=== PATIENT | female | born 1965 | race American Indian/Alaskan Native ===

== ENCOUNTER 2017-07-10 15:58 | Inpatient (IN) | payer OTHER ==
--- NOTE | 2017-07-10 16:37 | Emergency Department Report ---
Stated Complaint: STAPH INFECTION RIGHT BREAST Time Seen by Provider: 07/10/17 16:33 - HPI History of Present Illness: PT states she had itching to her R breast for "a while" PT states she was told it was cancer and then told it was staph PT States she was given medication and it is not working PT was seen at [place] and [place] PT has a bottle of a 10 day course of Bactrim that was prescribed 06-09-17. pt did not finish her course of antibiotics. pt thought the RX Naprosyn was her antibiotic - ROS Review of Systems: + bleeding from R breast - Exam Physical Exam: pt looks well, non toxic R breast with bloody bandage. PT refused to remove dressing triage. MSE screening note: Focused history and physical exam performed. Due to findings the following was ordered: labs ED Disposition for MSE Condition: Stable
[2017-07-10 17:17] LABS: Basophils % (Auto) 0.5 % (0.0-1.8); Eosinophils % (Auto) 5.4 % (0.0-4.3); Mean Corpuscular HGB Conc 31 % (30-34); Mean Corpuscular Volume 84 fl (79-97); Platelet Count 620 K/mm3 (140-440); Red Blood Count 2.15 M/mm3 (3.65-5.03); Red Cell Distribution Width 15.6 % (13.2-15.2); White Blood Count 9.2 K/mm3 (4.5-11.0)
[2017-07-10 17:22] LABS: Hemoglobin 5.5 gm/dl (10.1-14.3)
[2017-07-10 17:23] LABS: Hematocrit 18.1 % (30.3-42.9); Mean Corpuscular Hemoglobin 26 pg (28-32)
[2017-07-10 17:37] LABS: Albumin 3.7 g/dL (3.9-5); Alkaline Phosphatase 50 units/L (35-129); Anion Gap 19 mmol/L; Blood Urea Nitrogen 8 mg/dL (7-17); Calcium 9.7 mg/dL (8.4-10.2); Carbon Dioxide 23 mmol/L (22-30); Chloride 101.5 mmol/L (98-107); Glucose 113 mg/dL (65-100); Potassium 4.1 mmol/L (3.6-5.0); Sodium 139 mmol/L (137-145); Total Protein 7.5 g/dL (6.3-8.2)
[2017-07-10 17:38] LABS: Alanine Aminotransferase < 5 units/L (7-56)
[2017-07-10] MEDS ORDERED: VANCOMYCIN/NS 1 GM/250 ML 1 GM/250 ML BAG IV ONE (20:17)
--- NOTE | 2017-07-10 20:23 | Emergency Department Report ---
- General Chief complaint: Urogenital-Female Stated complaint: STAPH INFECTION RIGHT BREAST Time Seen by Provider: 07/10/17 16:33 Source: patient Mode of arrival: Ambulatory Limitations: No Limitations - History of Present Illness Initial comments: 51 years old female coming today with a right breast wound has been going on for several months. 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 Patient went to the hospital she was told that she had a breast cancer and need to follow up with her primary care physician but patient stated that they did not do any blood work or biopsy on the patient went to [facility] she told me she had a biopsy done and they told that she does not have cancer she had previous MRSA infection and she was treated with Bactrim and given Naprosyn for pain and fortunately patient is being taking Naprosyn thinking this is how her antibiotic and she did not actually took Bactrim. Patient stated that her wound is being was in brought a lot and she's been changing dressing almost every 3 hours. MD complaint: abscess/boil - Related Data Allergies Allergy/AdvReac Type Severity Reaction Status Date / Time No Known Allergies Allergy Unverified 07/10/17 16:40 Abscess Boil HPI - HPI Chief Complaint: Urogenital-Female Stated Complaint: STAPH INFECTION RIGHT BREAST Time Seen by Provider: 07/10/17 16:33 Allergies/Adverse Reactions: Allergies Allergy/AdvReac Type Severity Reaction Status Date / Time No Known Allergies Allergy Unverified 07/10/17 16:40 ED Review of Systems ROS: Stated complaint: STAPH INFECTION RIGHT BREAST Other details as noted in HPI Comment: All other systems reviewed and negative Constitutional: denies: chills, fever ENT: denies: throat pain Respiratory: denies: cough, orthopnea, shortness of breath Cardiovascular: denies: chest pain, palpitations Gastrointestinal: denies: nausea, vomiting Musculoskeletal: denies: back pain Neurological: denies: headache, weakness, numbness ED Past Medical Hx - Past Medical History Previous Medical History?: Yes Additional medical history: Breast staph infection and breast pain - Surgical History Past Surgical History?: Yes Additional Surgical History: Tubaligation - Social History Smoking Status: Never Smoker Substance Use Type: Alcohol ED Physical Exam - General Limitations: No Limitations General appearance: alert, in no apparent distress - Head Head exam: Present: atraumatic, normocephalic - Eye Eye exam: Present: normal appearance, other (pale Conjunctiva) - ENT ENT exam: Present: normal exam - Neck Neck exam: Present: normal inspection. Absent: meningismus, full ROM - Respiratory Respiratory exam: Present: normal lung sounds bilaterally, other (right breast with two wounds with sangious discharge and granulation tissue.). Absent: wheezes, rales, rhonchi, accessory muscle use, decreased breath sounds, prolonged expiratory - Cardiovascular Cardiovascular Exam: Present: regular rate, normal rhythm, tachycardia - GI/Abdominal GI/Abdominal exam: Present: soft. Absent: tenderness, guarding, rebound - Back Exam Back exam: Present: normal inspection. Absent: CVA tenderness (R), CVA tenderness (L) - Neurological Exam Neurological exam: Present: alert, oriented X3, CN II-XII intact - Skin Skin exam: Present: warm ED Course Vital Signs 07/10/17 07/10/17 07/10/17 16:33 17:56 18:41 Temperature 98.4 F 98.7 F Pulse Rate 109 H 87 Respiratory 20 18 16 Rate Blood Pressure 142/91 Blood Pressure 116/77 [Right] O2 Sat by Pulse 99 100 Oximetry - Reevaluation(s) Reevaluation #1: 07/10/17 21:42 Records from [facility] reviewed, patient presented on 06/08/2017 as documented by the ER physician patient presented with gradual onset of irritation and associated areas of swelling to her right breast 1 year, was also associated moderate gradually worsening pain for a few weeks patient did have chest x-ray done and was negative several blood work done which show a hemoglobin 11.1 patient was told that she has advanced breast cancer and they consulted the hospice social worker to arrange for follow-up. ED Medical Decision Making - Lab Data Result diagrams: 07/10/17 16:57 07/10/17 16:57 - Medical Decision Making Discussed with Dr. Maricarmen Rivera presented the patient to she agreed to admit the patient to our service. Critical care attestation.: If time is entered above; I have spent that time in minutes in the direct care of this critically ill patient, excluding procedure time. ED Disposition Clinical Impression: Breast abscess of female, Acute blood loss anemia Disposition: OP ADMIT IP TO THIS HOSP Is pt being admited?: Yes Does the pt Need Aspirin: No Condition: Stable Referrals: PRIMARY CARE, [Primary Care Provider] - 3-5 Days
[2017-07-10] MEDS: NACL 0.9% 500 ML 500 ML IV ONE ×2 (20:50→23:21)
[2017-07-10] MEDS ORDERED: NACL 0.9% 500 ML 500 ML ONE (23:18)
--- NOTE | 2017-07-10 23:38 | History and Physical Report ---
History of Present Illness Date of examination: 07/10/17 History of present illness: 51-year-old woman with no medical problems comes emergency room for evaluation of her breast. Over the last 1 year she's had swelling of the right breast. She developed bumps on the right breast which poppedand started draining. She was seen at [facility] a month ago and was told by the physician that she possible had cancer, she was discharged from the emergency room. She went to [facility] the same night, she had a workup, she stated her biopsy was negative, mammogram and order tests were negative. She states she had a staph infection of the breast and was given naproxen and Bactrim but has been taking naproxen for the last month and a half thinking that it was her antibiotic. She developed bleeding from the breast Review Of Systems: Constitutional: no weight loss Ears, eyes, nose, mouth and throat: no nasal congestion, no nasal discharge, no sinus pressure, blurry vision, diplopia Neck: No neck pain or rigidity. Cardiovascular: chest pain, orthopnea, palpitations Respiratory: No shortness of breath, cough Gastrointestinal: abdominal pain, hematochezia, melena Genitourinary : no dysuria, frequency , hematuria Musculoskeletal: no muscle ache Integumentary: no rash, no pruritis Neurological: no parathesias, focal weakness Endocrine: no cold or heat intolerance, no polyuria or polydipsia Hematologic/Lymphatic: no easy bruising, no easy bleeding, no gland swelling Allergic/Immunologic: no urticaria, no angioedema. PAST MEDICAL HISTORY:none PAST SURGICAL HISTORY: , tubal ligation FAMILY HISTORY: Hypertension SOCIAL HISTORY: Denies alcohol, tobacco, drugs Medications and Allergies Allergies Allergy/AdvReac Type Severity Reaction Status Date / Time No Known Allergies Allergy Verified 07/10/17 23:18 Home Medications Medication Instructions Recorded Confirmed Last Taken Type Naproxen [Naprosyn] 500 mg PO BID 07/11/17 07/11/17 Unknown History traMADol [Ultram] 50 mg PO Q8HR PRN 07/11/17 07/11/17 Unknown History Exam - Physical Exam Narrative exam: Gen. appearance: Patient lying in bed in no acute distress HEENT: Normocephalic/atraumatic, pupils equal round reactive to light, extra alkaline movement intact, no scleral icterus, no JVD or thyromegaly or nodule, neck is supple, mucous membrane moist, no erythema or exudate Heart: S1-S2, regular rate and rhythm Lungs: Clear to auscultation bilateral breathing comfortable Abdomen: Positive bowel sounds, nontender, nondistended, no organomegaly Extremities: No edema, cyanosis, clubbing Neuro:: Oriented 3 , cranial nerves II-12 intact, speech, motor intact Skin: No rash, nodules, warm dry Breast: Right breast is indurated, 3 large ulcers with blood oozing, yellow fibrinous material - Constitutional Vitals: Temp Pulse Resp BP Pulse Ox 98.4 F 74 17 125/79 100 07/10/17 23:36 07/10/17 23:36 07/10/17 23:36 07/10/17 23:36 07/10/17 23:36 Results - Labs CBC & Chem 7: 07/10/17 16:57 07/10/17 16:57 Labs: Abnormal lab results 07/10/17 07/10/17 07/10/17 Range/Units 16:57 16:57 16:57 RBC 2.15 L (3.65-5.03) M/mm3 Hgb 5.5 L* (10.1-14.3) gm/dl Hct 18.1 L* (30.3-42.9) % MCH 26 L (28-32) pg RDW 15.6 H (13.2-15.2) % Plt Count 620 H (140-440) K/mm3 Ada % (Auto) 8.2 H (0.0-7.3) % Eos % (Auto) 5.4 H (0.0-4.3) % Eos # 0.5 H (0.0-0.4) K/mm3 Glucose 113 H (65-100) mg/dL ALT < 5 L (7-56) units/L Albumin 3.7 L (3.9-5) g/dL Crossmatch See Detail Assessment and Plan Assessment Induration and ulcers of the right breast, ? Underlying malignancy Blood loss anemia Plan Admit to medicine TRANSFUSE red cells, start IV vancomycin Consult oncology, DVT prophylaxis initiated
[2017-07-11] MEDS ORDERED: MORPHINE IV PRN (00:22)
[2017-07-11] MEDS ORDERED: DULCOLAX PR PRN (00:22)
[2017-07-11] MEDS ORDERED: MILK OF MAGNESIA PO PRN (00:22)
[2017-07-11] MEDS ORDERED: ZOFRAN IV PRN (00:22)
[2017-07-11] MEDS ORDERED: TYLENOL PO PRN (00:22)
--- NOTE | 2017-07-11 07:45 | Admit Criteria Form ---
Admission Criteria Documentation: CELLULITIS Clinical Indications for Admission to Inpatient Care (c[place]/check or initial the applicable condition/criteria) Admission is indicated for ANY ONE of the following(1)(2)(3)(4)(5): [ ]I. Limb-threatening infection [ ]II. High-risk comorbid condition as indicated by ANY ONE of the following: [ ]a) Uncontrolled diabetes (eg, HbA1c greater than 10% (0.1)) [ ]b) Cirrhosis [ ]c) Neutropenia [ ]d) Asplenia(12) [ ]e) Immunosuppression [ ]f) Symptomatic heart failure [ ]III. Failure of outpatient therapy as indicated by ALL of the following(6): [ ]a) Progression or no improvement after adequate trial (minimum of 48 hours, with longer period for stable lower extremity infection) [ ]b) Adequate antibiotic regimen as indicated by use of ANY ONE of the following: [ ]i) First-generation cephalosporin (e.g., cephalexin) [ ]ii) Antistaphylococcal penicillin (e.g., dicloxacillin) [ ]iii) Penicillin-allergic patient regimen (clindamycin, extended-spectrum fluoroquinolone, or doxycycline) [ ]iv) Resistant organism (eg, methicillin-resistant Staphylococcus aureus) regimen (7)(8) [ ]c) Outpatient intravenous therapy regimen is not appropriate due to ANY ONE of the following. (9)(10) [ ]i) It was tried and was not successful (eg, progression of infection). [ ]ii) It is not available or cannot be arranged in a clinically appropriate time frame (e.g., the next day). [ ]iii) Clinical presentation (eg, acuity of infection, rapidity of progression, confirmed or suspected bacteremia) is judged to require ALL of the following: [ ]1) Immediate initiation of intravenous therapy ( eg, cannot wait for next day) [ ]2) Intensity of patient monitoring and observation (eg, vital sign measurement, checks for infection progression) that cannot be provided at other than inpatient level of care [ ]IV. Altered Mental status that is severe or persistent [ ]V. Bacteremia [ ]. Hemodynamic instability [ ]VII. Suspected necrotizing soft tissue infection (e.g., gas in tissue)(13)( 14)(15) [ ]VIII. Orbital infection (16)(17) [X]XI. Associated surgical procedure (e.g., abscess drainage, debridement) not amenable to outpatient, emergency department, or observation care [ ]X. Cutaneous gangrene(19) [ ]XII. High fever (temperature greater than 39.5 degrees C (103.1 degrees F) (oral)) not responsive to outpatient, emergency department, or observation care therapy(20)(21) [X ]XIII. Inpatient admission required [A]rather than observation care (Also use Cellulitis: Observation Care as appropriate) because of ANY ONE of the following(22)(23): [ ]a) Periorbital or perineal infection that is severe or worsening [ ]b) Severe pain requiring acute inpatient management [ ]b) IV fluid to replace significant ongoing (e.g., for over 24 hours) losses (greater than 3 L/m2 per day) [ ]b) Compartment syndrome monitoring (24) [ ]b) Strict or protective (eg, laminar flow) isolation) [ ]b) Urgent debridement or skin grafting [ ]b) Bone or joint debridement [ ]b) Immediate inpatient surgery [X]b) Other condition, treatment, or monitoring requiring inpatient admission Extended stay beyond goal length of stay may be needed for(18)(36)(37)(38)(39)( 40)(41) [ ]a) Necrotizing soft tissue infection or fasciitis(13)(42) [ ]b) Gram-negative infection [ ]c) Methicillin-resistant Staphylococcal aureus (MRSA) infection(7)(43) [ ]d) Peripheral venous insufficiency with cellulitis [ ]e) Extensive edema [ ]f) Sepsis or continued Hemodynamic instability [ ]g) Continued high fever or mental status change [ ]h) Bacteremia(43) [ ]i) Active serious comorbid conditions ( eg, heart failure, renal insufficiency) The original [employer] content created by [employer] has been revised. The portions of the content which have been revised are identified through the use of italic text or in bold, and [facility] has neither reviewed nor approved the modified material. All other unmodified content is copyright [facility] Please see references footnoted in the original [facility] edition 2017 Admission Criteria Met: Yes
[2017-07-11] MEDS ORDERED: VANCOMYCIN/NS 1 GM/250 ML 1 GM/250 ML BAG IV SCH (08:00)
[2017-07-11] MEDS: VANCOMYCIN 1,250 MG in NACL 0.9% 250ML 250 ML IV SCH ×2 (08:47→22:03)
--- NOTE | 2017-07-11 10:37 | Progress Note ---
Assessment and Plan Assessment and plan: Right breast abscess. Patient with induration and also to the right breast. Patient reports evaluation A gradient approximate one month ago and states that it was reported as a staph infection. She states that her mammogram and biopsy were negative. We will attempt to obtain old records from [place]. ? Underlying malignancy. Continue IV antibiotics. Consult Dr. Snyder. Acute blood loss Anemia. Patient reports some bleeding from the breast. However, patient also has been taking naproxen for the last month. ? NSAID -->? PUD but no evidence of active bleeding. Check Hemoccult stool. Check iron studies, B12, folate, LDH and retic count. Hematology consultation. History Interval history: No new issues overnight. Hospitalist Physical - Constitutional Vitals: Temp Pulse Resp BP Pulse Ox 98.2 F 54 L 16 114/78 100 07/11/17 07:43 07/11/17 07:43 07/11/17 07:43 07/11/17 07:43 07/11/17 07:43 General appearance: Present: no acute distress, well-nourished - EENT Eyes: Present: PERRL, EOM intact ENT: hearing intact, clear oral mucosa, dentition normal - Neck Neck: Present: supple, normal ROM - Respiratory Respiratory effort: normal Respiratory: bilateral: CTA - Cardiovascular Rhythm: regular Heart Sounds: Present: S1 & S2. Absent: gallop, rub - Extremities Extremities: no ischemia, No edema, Full ROM - Abdominal General gastrointestinal: soft, non-tender, non-distended, normal bowel sounds - Integumentary Integumentary: Present: clear, warm, dry - Neurologic Neurologic: CNII-XII intact, moves all extremities - Additional findings Additional findings: Breast: Right breast is indurated, 3 large ulcers with blood oozing, yellow fibrinous material Results - Labs CBC & Chem 7: 07/10/17 16:57 07/10/17 16:57 Labs: Laboratory Last Values WBC 9.2 K/mm3 (4.5-11.0) 07/10/17 16:57 RBC 2.15 M/mm3 (3.65-5.03) L 07/10/17 16:57 Hgb 5.5 gm/dl (10.1-14.3) L* 07/10/17 16:57 Hct 18.1 % (30.3-42.9) L* 07/10/17 16:57 MCV 84 fl (79-97) 07/10/17 16:57 MCH 26 pg (28-32) L 07/10/17 16:57 MCHC 31 % (30-34) 07/10/17 16:57 RDW 15.6 % (13.2-15.2) H 07/10/17 16:57 Plt Count 620 K/mm3 (140-440) H 07/10/17 16:57 Lymph % (Auto) 24.6 % (13.4-35.0) 07/10/17 16:57 Reagan % (Auto) 8.2 % (0.0-7.3) H 07/10/17 16:57 Eos % (Auto) 5.4 % (0.0-4.3) H 07/10/17 16:57 Baso % (Auto) 0.5 % (0.0-1.8) 07/10/17 16:57 Lymph # 2.3 K/mm3 (1.2-5.4) 07/10/17 16:57 Reagan # 0.8 K/mm3 (0.0-0.8) 07/10/17 16:57 Eos # 0.5 K/mm3 (0.0-0.4) H 07/10/17 16:57 Baso # 0.0 K/mm3 (0.0-0.1) 07/10/17 16:57 Seg Neutrophils % 61.3 % (40.0-70.0) 07/10/17 16:57 Seg Neutrophils # 5.7 K/mm3 (1.8-7.7) 07/10/17 16:57 Sodium 139 mmol/L (137-145) 07/10/17 16:57 Potassium 4.1 mmol/L (3.6-5.0) 07/10/17 16:57 Chloride 101.5 mmol/L (98-107) 07/10/17 16:57 Carbon Dioxide 23 mmol/L (22-30) 07/10/17 16:57 Anion Gap 19 mmol/L 07/10/17 16:57 BUN 8 mg/dL (7-17) 07/10/17 16:57 Creatinine 0.8 mg/dL (0.7-1.2) 07/10/17 16:57 Estimated GFR > 60 ml/min 07/10/17 16:57 BUN/Creatinine Ratio 10.00 % 07/10/17 16:57 Glucose 113 mg/dL (65-100) H 07/10/17 16:57 Calcium 9.7 mg/dL (8.4-10.2) 07/10/17 16:57 Total Bilirubin 0.20 mg/dL (0.1-1.2) 07/10/17 16:57 AST 12 units/L (5-40) 07/10/17 16:57 ALT < 5 units/L (7-56) L 07/10/17 16:57 Alkaline Phosphatase 50 units/L (35-129) 07/10/17 16:57 Total Protein 7.5 g/dL (6.3-8.2) 07/10/17 16:57 Albumin 3.7 g/dL (3.9-5) L 07/10/17 16:57 Albumin/Globulin Ratio 1.0 % 07/10/17 16:57 HCG, Qual Negative (Negative) 07/10/17 16:57 Blood Type A POSITIVE 07/10/17 16:57 Antibody Screen Negative 07/10/17 16:57 Crossmatch See Detail 07/10/17 16:57
--- NOTE | 2017-07-11 11:51 | Hem/Onc Consultation ---
History of Present Illness - Reason for Consult Consult date: 07/11/17 - History of Present Illness 51 year old lady with breast mass that has been getting larger over several months. Was seen at multiple hospitals and informed she has no cancer. Admitetd with anemia and mass. Medications and Allergies Allergies Allergy/AdvReac Type Severity Reaction Status Date / Time No Known Allergies Allergy Verified 07/10/17 23:18 Home Medications Medication Instructions Recorded Confirmed Last Taken Type Naproxen [Naprosyn] 500 mg PO BID 07/11/17 07/11/17 Unknown History traMADol [Ultram] 50 mg PO Q8HR PRN 07/11/17 07/11/17 Unknown History Active Meds: Active Medications Acetaminophen (Tylenol) 650 mg PO Q4H PRN PRN Reason: Pain MILD(1-3)/Fever >100.5/TADEO Bisacodyl (Dulcolax) 10 mg [place] QDAY PRN PRN Reason: Constipation unrelieved by MOM Vancomycin HCl 1,250 mg/ (Sodium Chloride) 262.5 mls @ 166.667 mls/hr IV Q12H SERGIO Last Admin: 07/11/17 08:47 Dose: 166.667 mls/hr Magnesium Hydroxide (Milk Of Magnesia) 30 ml PO Q4H PRN PRN Reason: Constipation Morphine Sulfate (Morphine) 2 mg IV Q4H PRN PRN Reason: Pain, Moderate (4-6) Ondansetron HCl (Zofran) 4 mg IV Q8H PRN PRN Reason: N/V unrelieved by Reglan Review of Systems All systems: negative (mild weakness) Exam - Constitutional Vitals: Last Vital Signs Temp 98.2 F 07/11/17 07:43 Pulse 54 L 07/11/17 07:43 Resp 16 07/11/17 07:43 BP 114/78 07/11/17 07:43 Pulse Ox 100 07/11/17 07:43 Pain Intensity (0-10): denies any pain - EENT Eyes: PERRL ENT: hearing intact Lymph node exam: negative cervical - Neck Neck: supple - Respiratory Respiratory effort: Positive: normal Respiratory: bilateral: CTA - Breasts Breasts: left: masses - Cardiovascular Rhythm: regular Heart Sounds: Present: S1 & S2 - Gastrointestinal General gastrointestinal: Present: soft Rectal Exam: deferred - Musculoskeletal Musculoskeletal: strength equal bilaterally - Neurologic Neurologic: CNII-XII intact Assessment and Plan - Patient Problems (1) Acute blood loss anemia Current Visit: Yes Status: Acute Plan to address problem: Asymptomatic. She is done with PRBC. (2) Breast abscess of female Current Visit: Yes Status: Acute Plan to address problem: very suspicious for cancer. D/w Dr Snyder. Plan is for biopsy. Depending on markers will need homer adjuvant therapy. She understands.
--- NOTE | 2017-07-11 11:54 | Consultation ---
History of Present Illness Consult date: 07/11/17 Reason for consult: other (Right breast abscess) Requesting physician: SHYANNE MAE Chief complaint: Right breast mass and drainage - History of present illness History of present illness: This is a 51 year old lady admitted for right breast abscess. Patient reports she was seen at [facility] last month with mammogram and right breast biopsy peformed with negative findings. She reports over the past month increase in size of right breast mass with drainage. She denies fevers and chills. She has no family history of breast, prostate, colon or ovarian cancer. Past History Past Medical History: No medical history Past Surgical History: No surgical history Social history: no significant social history Family history: no significant family history Medications and Allergies Allergies Allergy/AdvReac Type Severity Reaction Status Date / Time No Known Allergies Allergy Verified 07/10/17 23:18 Home Medications Medication Instructions Recorded Confirmed Last Taken Type Naproxen [Naprosyn] 500 mg PO BID 07/11/17 07/11/17 Unknown History traMADol [Ultram] 50 mg PO Q8HR PRN 07/11/17 07/11/17 Unknown History Active Meds: Active Medications Acetaminophen (Tylenol) 650 mg PO Q4H PRN PRN Reason: Pain MILD(1-3)/Fever >100.5/TADEO Bisacodyl (Dulcolax) 10 mg [place] QDAY PRN PRN Reason: Constipation unrelieved by MOM Vancomycin HCl 1,250 mg/ (Sodium Chloride) 262.5 mls @ 166.667 mls/hr IV Q12H SERGIO Last Admin: 07/11/17 08:47 Dose: 166.667 mls/hr Magnesium Hydroxide (Milk Of Magnesia) 30 ml PO Q4H PRN PRN Reason: Constipation Morphine Sulfate (Morphine) 2 mg IV Q4H PRN PRN Reason: Pain, Moderate (4-6) Ondansetron HCl (Zofran) 4 mg IV Q8H PRN PRN Reason: N/V unrelieved by Reglan Review of Systems All systems: negative - Breasts right: change in shape, swelling, masses, pain, skin changes - Integumentary sores, wounds, blisters, growths, lesions Exam Vital Signs Temp Pulse Resp BP Pulse Ox 98.4 F 109 H 20 142/91 99 07/10/17 16:33 07/10/17 16:33 07/10/17 16:33 07/10/17 16:33 07/10/17 16:33 - General physical appearance Positive: well developed - Eyes Positive: PERRL, normal occular movement - ENT Positive: normal pinna, normal nares, normal mucosa, no hearing loss, no congestion - Neck Positive: no masses, no bruits, trachea midline - Respiratory Positive: normal expansion, normal respiratory effort, clear to percussion - Cardiovascular Rhythm: regular - Extremities Extremities: no ischemia, pulses intact, pulses symmetrical, No edema, normal temperature, normal color, Full ROM - Breasts Breasts: other (right breast fungating mass with ulceration and minimal bleeding highly suspicious for malignancy from the 7:00 to 11:00 position of 4x9 cm and palpable breast mass from the 6-12:00 positions of at least 8-10cm; mulptile satellite skin nodules present concerning for malignancy; palpable right axillary lymphadenopathy) - Abdomen Abdomen: Present: soft - Genitourinary Female Genitourinary: deferred - Neurologic Neurologic: alert and oriented to time, place and person, motor strength and sensation are grossly intact, CN II-XII intact - Psychiatric Psychiatric: appropriate mood/affect, intact judgment & insight, memory intact, cooperative Results - Labs 07/10/17 16:57 07/10/17 16:57 Assessment and Plan This is a 51-year-old -[place] lady seen today in consultation with physical exam findings highly suspicious and concerning for right breast cancer , right breast fungating ulcerated mass from the 7 to 11 o'clock position of the least 9 cm. My concerns for right breast cancer were discussed with patient and we'll arrange for diagnostic workup. Patient is without insurance and we'll get patient qualified for our [employer] pat that will cover a bilateral diagnostic mammogram, diagnostic right breast ultrasound and breast biopsy. Biopsy to be scheduled on Sunday and I will see patient in follow-up on Sunday in my office for further planning with biopsy results. Patient will need neoadjuvant chemotherapy and will need further workup for evaluation for metastatic disease, she's been seen and evaluated by Dr. Dhaliwal as well. Recommend blood transfusion as well given hemoglobin 5. Discussed the above with primary team.
[2017-07-11 13:28] LABS: Reticulocyte % 3.28 % (0.78-2.58)
--- NOTE | 2017-07-11 21:27 | Consultation ---
History of Present Illness - Reason for Consult Consult date: 07/11/17 anemia. Requesting physician: SHYANNE MAE - History of Present Illness Thank you for this consult, patient seen, record reviewed, reason for consult is anemia. It appears that patient presented with a breast lesion, and already seen by another hem-onc, and plan for bx in the talk. Her anemia was not addressed, and may all be related. will order some labs , and if still needed, will f/up ,other [place], will deffer to the current hem/onc. Past History Past Medical History: No medical history Past Surgical History: No surgical history Social history: no significant social history Family history: no significant family history Medications and Allergies Allergies Allergy/AdvReac Type Severity Reaction Status Date / Time No Known Allergies Allergy Verified 07/10/17 23:18 Home Medications Medication Instructions Recorded Confirmed Last Taken Type Naproxen [Naprosyn] 500 mg PO BID 07/11/17 07/11/17 Unknown History traMADol [Ultram] 50 mg PO Q8HR PRN 07/11/17 07/11/17 Unknown History Active Meds: Active Medications Acetaminophen (Tylenol) 650 mg PO Q4H PRN PRN Reason: Pain MILD(1-3)/Fever >100.5/TADEO Bisacodyl (Dulcolax) 10 mg ME QDAY PRN PRN Reason: Constipation unrelieved by MOM Vancomycin HCl 1,250 mg/ (Sodium Chloride) 262.5 mls @ 166.667 mls/hr IV Q12H SERGIO Last Admin: 07/11/17 08:47 Dose: 166.667 mls/hr Magnesium Hydroxide (Milk Of Magnesia) 30 ml PO Q4H PRN PRN Reason: Constipation Morphine Sulfate (Morphine) 2 mg IV Q4H PRN PRN Reason: Pain, Moderate (4-6) Ondansetron HCl (Zofran) 4 mg IV Q8H PRN PRN Reason: N/V unrelieved by Reglan Review of Systems Constitutional: fatigue Exam - Constitutional Vitals: Temp Pulse Resp BP Pulse Ox 98.3 F 73 18 129/83 99 07/11/17 16:16 07/11/17 16:18 07/11/17 16:16 07/11/17 16:16 07/11/17 16:18 General appearance: Present: mild distress, well-nourished - EENT Eyes: Present: PERRL ENT: hearing intact, clear oral mucosa - Neck Neck: Present: supple, normal ROM - Respiratory Respiratory effort: normal Respiratory: bilateral: CTA - Cardiovascular Heart Sounds: Present: S1 & S2. Absent: rub, click - Extremities Extremities: pulses symmetrical, No edema Peripheral Pulses: within normal limits - Abdominal General gastrointestinal: Present: soft, non-tender, non-distended, normal bowel sounds Female genitourinary: Present: deferred - Rectal Rectal Exam: deferred - Integumentary Integumentary: Present: clear, warm, dry - Musculoskeletal Musculoskeletal: gait normal, strength equal bilaterally - Psychiatric Psychiatric: appropriate mood/affect, intact judgment & insight - Neurologic Neurologic: CNII-XII intact, moves all extremities Results - Labs CBC & Chem 7: 07/10/17 16:57 07/10/17 16:57 Labs: Abnormal lab results 07/11/17 07/11/17 07/11/17 Range/Units 12:33 12:33 12:33 Percent Retic 3.28 H (0.78-2.58) % Iron 22 L (37-170) ug/dL Vitamin B12 1632 H (211-911) pg/mL Assessment and Plan - Patient Problems (1) Acute blood loss anemia Current Visit: Yes Status: Acute Plan to address problem: see notes above. (2) Breast abscess of female Current Visit: Yes Status: Acute Plan to address problem: see notes above.
[2017-07-12 05:14] LABS: Basophils % (Auto) 0.7 % (0.0-1.8); Hematocrit 25.7 % (30.3-42.9); Hemoglobin 8.2 gm/dl (10.1-14.3); Mean Corpuscular HGB Conc 32 % (30-34); Mean Corpuscular Hemoglobin 27 pg (28-32); Mean Corpuscular Volume 85 fl (79-97); Platelet Count 472 K/mm3 (140-440); Red Blood Count 3.02 M/mm3 (3.65-5.03); Red Cell Distribution Width 16.2 % (13.2-15.2); White Blood Count 8.8 K/mm3 (4.5-11.0)
[2017-07-12 05:37] LABS: Anion Gap 17 mmol/L; Blood Urea Nitrogen 9 mg/dL (7-17); Calcium 9.6 mg/dL (8.4-10.2); Carbon Dioxide 19 mmol/L (22-30); Chloride 105.7 mmol/L (98-107); Glucose 93 mg/dL (65-100); Potassium 4.1 mmol/L (3.6-5.0); Sodium 138 mmol/L (137-145)
--- NOTE | 2017-07-12 08:22 | Discharge Summary ---
Providers - Providers Date of Admission: 07/10/17 23:38 Date of discharge: 07/12/17 Attending physician: SHYANNE MAE 07/11/17 00:22 Consult to Physician [CONS] Routine Consulting Provider: SAGE BARRERA Reason For Exam: breast wopund suspicious for cancer Place consult to:: Notified:: [facility] Phone number called:: [phone] Was contact made?: Yes If yes, spoke with:: ZACH Munroe called:: 08:12 Comment:: ARACELI NOTIFLEVI 07/11/17 08:00 Consult to Physician [CONS] Routine Consulting Provider: SHEBA AGARWAL Reason For Exam: breast abscess Place consult to:: DR. TROTTER Notified:: DR. TROTTER Phone number called:: [facility] Was contact made?: Yes If yes, spoke with:: DR. TROTTER Time called:: 10:02 Comment:: ARACELI NOTIFLEVI 07/11/17 09:43 Consult to Physician [CONS] Routine Consulting Provider: FRANCES SNYDER Reason For Exam: breast abscess Place consult to:: DR. SNYDER Notified:: DR. SNYDER Phone number called:: [phone] Was contact made?: Yes If yes, spoke with:: BLADE Munroe called:: 10:07 Comment:: ARACELI NOTIFLEVI 07/11/17 10:37 Consult to Physician [CONS] Routine Consulting Provider: STEVE SANCHEZ Reason For Exam: anemia Place consult to:: DR. SANCHEZ Notified:: DR. SANCHEZ Phone number called:: [phone] Was contact made?: Yes If yes, spoke with:: DR. SANCHEZ Time called:: 11:12 Comment:: ARACELI NOTIFIED Primary care physician: SUPERVISOR [employer]INTING Hospitalization Reason for admission: breast mass Condition: Stable Hospital course: This is a 51 year old lady admitted for right breast abscess. Patient reported she was seen at [facility] last month with mammogram and right breast biopsy performed with negative findings. She reports over the past month increase in size of right breast mass with drainage. She denied fevers and chills. She has no family history of breast, prostate, colon or ovarian cancer. Patient was seen by surgery and noted to have physical exam findings highly suspicious and concerning for right breast cancer, right breast fungating ulcerated mass from the 7 to 11 o'clock position of the least 9 cm. the concerns for right breast cancer were discussed with patient and Dr. Snyder will arrange for diagnostic workup. Patient is without insurance and Dr. Snyder will get patient qualified for [employer] that will cover a bilateral diagnostic mammogram, diagnostic right breast ultrasound and breast biopsy. Biopsy to be scheduled on Sunday and the patient will be seen in follow -up on Sunday in Dr. Snyder's office for further planning with biopsy results. Patient will need neoadjuvant chemotherapy and will need further workup for evaluation for metastatic disease, she's been seen and evaluated by Dr. Barrera as well. Patient received blood transfusion during hospitalization. Hemoglobin agustina to 8.2 in stable. Dedicated discharge time 35 minutes. Disposition: - TO HOME OR SELFCARE Time spent for discharge: 35 - Discharge Diagnoses (1) Anemia in chronic illness Status: Acute (2) Breast CA Status: Acute Qualifiers: Breast location: B Estrogen receptor status: E Patient sex: P Laterality: L Core Measure Documentation - Palliative Care Palliative Care/ Comfort Measures: Not Applicable - Core Measures Any of the following diagnoses?: none Exam - Constitutional Vitals: Temp Pulse Resp BP Pulse Ox 98.3 F 20 L 18 129/83 100 07/11/17 16:16 07/11/17 22:54 07/11/17 16:16 07/11/17 16:16 07/11/17 22:54 General appearance: Present: no acute distress, well-nourished - EENT Eyes: Present: PERRL ENT: hearing intact, clear oral mucosa - Neck Neck: Present: supple, normal ROM - Respiratory Respiratory effort: normal Respiratory: bilateral: CTA - Cardiovascular Heart Sounds: Present: S1 & S2. Absent: rub, click - Extremities Extremities: pulses symmetrical, No edema Peripheral Pulses: within normal limits - Abdominal General gastrointestinal: Present: soft, non-tender, non-distended, normal bowel sounds Female genitourinary: Present: normal - Integumentary Integumentary: Present: clear, warm, dry - Musculoskeletal Musculoskeletal: gait normal, strength equal bilaterally - Psychiatric Psychiatric: appropriate mood/affect, intact judgment & insight - Neurologic Neurologic: CNII-XII intact, moves all extremities Plan Activity: no restrictions Weight Bearing Status: Full Weight Bearing Diet: regular Follow up with: PRIMARY CAREMD [Primary Care Provider] - 3-5 Days FRANCES SNYDER MD [Staff Physician] - 7 Days SAGE BARRERA MD [Staff Physician] - 7 Days Prescriptions: oxyCODONE /ACETAMINOPHEN [Percocet 5/325] 1 tab PO Q4HR #30 tab
[2017-07-12 08:50] VITALS: BP 106/62
[2017-07-12] MEDS: VANCOMYCIN 1,250 MG in NACL 0.9% 250ML 250 ML IV SCH (08:56)
== END 2017-07-12 11:32 | disposition home or self-care (01) | DRG 598 ==
LOC: ED 15:58 → 3A 23:38
PROVIDERS: ADMIT Internal Medicine; ATTEND Hospitalist
PROC: 30233N1 Transfusion of Nonautologous Red Blood Cells into Peripheral Vein, Percutaneous Approach (ICD-10-PCS; principal; 2017-07-10)
DX: C50.912 Malignant neoplasm of unspecified site of left female breast (principal); D62 Acute posthemorrhagic anemia; Z98.51 Tubal ligation status; D63.8 Anemia in other chronic diseases classified elsewhere
CPT/HCPCS: 36415; 80048; 80053; 82607; 82747; 83010; 83550; 83615; 84703; 85025; 85045; 86850; 86900; 86901; 86920; 87040; 87116; J3370; J7040; J7050; P9016

== ENCOUNTER 2017-07-18 07:51 | Outpatient (CLI) | payer OTHER | END 2017-07-18 07:52 | disposition home or self-care (01) | LOC: LABHHL 07:51 | PROVIDERS: ATTEND Surgery | DX: N63 Unspecified lump in breast (principal) | CPT/HCPCS: 88307; 88342 ==

== ENCOUNTER 2017-07-31 14:22 | Outpatient (CLI) | payer OTHER ==
--- NOTE | 2017-08-03 09:48 | Magnetic Resonance Report ---
BILATERAL BREAST MRI WITHOUT AND WITH CONTRAST: 07/31/17 14:22:00 CLINICAL: Known right breast cancer. Status post right ultrasound needle biopsy 07/13/17 with pathologic diagnosis of invasive ductal carcinoma, Nanda grade 3/3. A right axillary lymph node biopsy on the same day revealed metastatic carcinoma. COMPARISON:07/13/17 bilateral mammogram and right breast ultrasound.. TECHNIQUE: Axial 1.0-mm T1 without, axial high resolution 2.0-mm T2 and axial 1.0-mm dynamic Vibrant high-resolution postcontrast T1 fat saturation sequences on a 1.5 Ivon magnet. The examination was performed with an 8 channel dedicated Sentin[employer] breast coil. Post processing with CAD and subtraction was performed on an [employer] workstation. 17.0 cc of Multihance was injected without incident for the contrast portion of the exam. Consent was obtained prior to the administration of the contrast. FINDINGS: Right: Marked background parenchymal enhancement. The known cancer is a lobular shaped heterogeneously enhancing complex retroareolar mass measuring 10.1 x 9.2 x 9.2 cm. It demonstrates heterogeneous enhancement with mixed kinetics, 343% peak enhancement and 22% type III washout. The mass has complex architecture with numerous T2 hyperintense cystic components. The mass extends to thickened skin where there is a large ulceration of the skin. The mass also extends to and invades the right pectoral muscle. No chest wall invasion. Additional medial enhancing skin masses measure 2.0 x 1.5 and 1.0 x 1.0 cm. A cluster of abnormal right level II axillary lymph nodes measures 4.1 x 2.6 cm. No suspicious intramammary lymph nodes. Left: Mild background parenchymal enhancement. No mass or suspicious enhancement of the left breast. No suspicious left axillary or left internal mammary lymph nodes. IMPRESSION: 1. Known biopsy proven 10 cm right breast mass with invasion and ulceration of the skin as well as invasion of the right pectoral muscle. 2. Two separate highly suspicious skin nodules of the upper medial right breast. 3. Right axillary lymphadenopathy with biopsy proven right axillary erick metastasis. 4. Negative left breast. RIGHT BI-RADS 6 -- Known Cancer LEFT BI-RADS 1 -- Negative
== END 2017-07-31 14:23 | disposition home or self-care (01) ==
LOC: SPVIMAG 14:22
PROVIDERS: ATTEND Surgery
DX: C50.411 Malignant neoplasm of upper-outer quadrant of right female breast (principal); C50.511 Malignant neoplasm of lower-outer quadrant of right female breast; C50.011 Malignant neoplasm of nipple and areola, right female breast
CPT/HCPCS: 0159T; A9577; C8908; 77059

== ENCOUNTER 2017-08-01 06:08 | Day surgery (SDC) | payer OTHER ==
[~2017-08-01 06:08] MED LIST: ANCEF/STERILE WATER 2 GM/20 ML IV NR; HEPARIN 10,000 UNITS/10 ML IV ONE; MARCAINE 0.25% INFILTRATI ONE; NACL 0.9% IR ONE; NACL 0.9% IV ONE; XYLOCAINE 1% 20 mL INFILTRATI ONE
[2017-08-01] MEDS ORDERED: NACL BACTERIOSTATIC INFILTRATI ONE (06:38)
[2017-08-01] MEDS ORDERED: PEPCID PO NR (07:00)
[2017-08-01] MEDS ORDERED: NACL 0.9% 1000 ML 1,000 ML IV SCH (07:00)
[2017-08-01] MEDS ORDERED: VERSED IV NR (07:00)
[2017-08-01] MEDS ORDERED: DIPRIVAN 10 MG/ML IV ONE (07:30)
[2017-08-01] MEDS ORDERED: DILAUDID ONE (07:31)
[2017-08-01] MEDS ORDERED: NACL 0.9% 100 ML ONE (07:40)
[2017-08-01] MEDS ORDERED: HEPARIN 10,000 UNITS/10 ML ONE (07:40)
[2017-08-01] MEDS ORDERED: MARCAINE 0.25% INFILTRATI ONE ×2 (07:40→08:37)
[2017-08-01] MEDS ORDERED: XYLOCAINE 1% 20 mL ONE (07:41)
[2017-08-01 07:47] LABS: Hematocrit 29.5 % (30.3-42.9); Hemoglobin 9.5 gm/dl (10.1-14.3)
--- NOTE | 2017-08-01 07:58 | Anesthesia Day of Surgery ---
Anesthesia Day of Surgery - Day of Surgery Patient Examined: Yes Patient H&P Reviewed: Yes Patient is NPO: Yes
--- NOTE | 2017-08-01 07:58 | Anesthesia Consultation ---
Anesthesia Consult and Med Hx Date of service: 08/01/17 - Airway Anesthetic Teeth Evaluation: Good ROM Head & Neck: Adequate Mental/Hyoid Distance: Adequate Mallampati Class: Class II Intubation Access Assessment: Probably Good - Pre-Operative Health Status ASA Pre-Surgery Classification: ASA2 Proposed Anesthetic Plan: General, MAC - Pulmonary Hx Asthma: No COPD: No Hx Pneumonia: No - Endocrine Hx End Stage Renal Disease: No - Hematic Hx Anemia: Yes (today) Hx Sickle Cell Disease: No - Other Systems Hx Cancer: Yes (Right breast cancer)
[2017-08-01] MEDS ORDERED: ZOFRAN ONE (08:34)
[2017-08-01] MEDS ORDERED: DECADRON ONE (08:34)
[2017-08-01] MEDS ORDERED: XYLOCAINE MPF 2% ONE (08:34)
[2017-08-01] MEDS ORDERED: XYLOCAINE 1% 20 mL INFILTRATI ONE (08:37)
[2017-08-01] MEDS ORDERED: NACL 0.9% IV ONE (08:53)
[2017-08-01] MEDS ORDERED: HEPARIN 10,000 UNITS/10 ML IV ONE (08:53)
[2017-08-01] MEDS ORDERED: MORPHINE IV PRN (08:58)
[2017-08-01] MEDS ORDERED: NACL 0.9% IR ONE (09:08)
--- NOTE | 2017-08-01 09:26 | Short Stay Summary ---
Short Stay Documentation Date of service: 08/01/17 Narrative H&P: 51 y/o F with right sided breast cancer. Presents today for placement of port a cath to initiate chemotherapy as recommended by oncology. - History Principal diagnosis: right breast cancer H&P: obtained from office Past Medical History: other (R breast cancer) Past Surgical History: No surgical history Social history: no significant social history - Allergies and Medications Current Medications: Allergies No Known Allergies Allergy (Verified 07/30/17 09:33) Home Medications Medication Instructions Recorded Confirmed Last Taken Type oxyCODONE /ACETAMINOPHEN [Percocet 1 tab PO Q4HR #30 tab 07/12/17 08/01/1707/31 Rx 5/325] Active Medications Cefazolin Sodium (Ancef/Sterile Water 2 Gm/20 Ml) 2 gm IV PREOP NR Stop: 08/01/17 12:00 Famotidine (Pepcid) 20 mg PO PREOP NR Stop: 08/01/17 23:45 Last Admin: 08/01/17 07:27 Dose: 20 mg Sodium Chloride (Nacl 0.9% 1000 Ml) 1,000 mls @ 100 mls/hr IV DIRECT SERGIO Last Admin: 08/01/17 07:15 Dose: 100 mls/hr Midazolam HCl (Versed) 2 mg IV PREOP NR Stop: 08/01/17 23:59 Last Admin: 08/01/17 07:57 Dose: 2 mg Morphine Sulfate (Morphine) 2 mg IV Q10MIN PRN PRN Reason: Pain, Moderate (4-6) Stop: 08/01/17 15:00 Ondansetron HCl (Zofran) 4 mg IV ONCE PRN PRN Reason: Nausea And Vomiting Stop: 08/01/17 09:31 Oxycodone/Acetaminophen (Percocet 5/325) 1 tab PO ONCE PRN PRN Reason: Pain, Moderate (4-6) Stop: 08/01/17 10:01 - Physical exam General appearance: no acute distress HEENT: Atraumatic, EOMI Lungs: Normal air movement Breasts: other (large right sided fungating breast mass) Heart: Regular rate Gastrointestinal: normal Extremities: No edema, Full ROM - Brief post op/procedure progress note Date of procedure: 08/01/17 Pre-op diagnosis: right breast cancer Post-op diagnosis: same Procedure: Placement of left port a cath Anesthesia: GETA local Findings: intraop xray shows port to be in good position Surgeon: FRANCES VALLEJO Bottle Packer: NIC RIGGINS Estimated blood loss: minimal Pathology: none Condition: stable - Hospital course Hospital course: The patient was observed in the PACU and recovered. Postoperative course was uneventful and she was discharged home. - Disposition Condition at discharge: Good Disposition: DC-01 TO HOME OR SELFCARE - Discharge Diagnoses (1) Breast CA Status: Acute Qualifiers: Breast location: B Estrogen receptor status: E Patient sex: P Laterality: L Short Stay Discharge Plan Activity: no restrictions Diet: regular Wound: other (may shower tomorrow, do not scrub incisions, keep incisions clean and dry, do not submerge incisions in baths, hottubs, pools until healed) Special Instructions: other Follow up with: PRIMARY MD LAURA [Primary Care Provider] - 7 Days FRANCES VALLEJO MD [Staff Physician] - 14 Days Prescriptions: Clindamycin [Clindamycin CAP] 300 mg PO Q8H #30 cap oxyCODONE /ACETAMINOPHEN [Percocet 5/325 mg] 1 tab PO Q4HR #30 tab
[2017-08-01] MEDS ORDERED: ZOFRAN IV PRN (09:30)
--- NOTE | 2017-08-01 09:57 | Operative Report ---
Operative Report Operative Report: Date of Surgery: August 01, 2017 Preoperative diagnosis: Advanced stage right breast cancer in need of central venous access Postoperative diagnosis: Same Procedure: Left port placement under fluoroscopy guidance Surgeon: Monica Snyder MD Syrup Maker Cook: Dr. Castro Anesthesia: General Findings: Left port placement with placement confirmed Complications: None EBL: Minimal Disposition: PACU in good condition Indications for operative procedure: This is a 51 year old lady with newly diagnosed right breast cancer of the upper and lower outer quadrants, Stage III in need of central venous access for neoadjuvant chemotherapy. Procedure in detail: Patient was taken to the operating room and was laid supine. Gen. anesthesia was administered. Bilateral chest and neck were prepped and draped in the normal sterile operative fashion. Known right breast fungating breast mass was noted and was covered for concerns for infection. Patient was placed in Trendelenburg position. Sternal notch including the clavicle and sternum were identified. The left subclavian vein was accessed with a needle and syringe attached with appropriate backflow of blood. A wire was threaded through the needle with no resistance. Fluoroscopy was then used to identify the location of proper wire placement. 11 blade knife was then used and was made at the insertion site of the wire. A 15 blade knife was then made through the skin down to the subcutaneous tissues 2 cm distal to wire insertion for creation of pocket for the port. Port pocket was then created using the bovie cautery. Port catheter was then attached to the Tunneler and was inserted from the port pocket to the wire insertion site. Catheter with dilator was then threaded through the wire using a Seldinger like technique. The dilator was removed. The catheter was then threaded through the sheath. The sheath was then peeled away and catheter was in proper placement that was confirmed under fluoroscopy guidance. The catheter was cut to size. Good backflow of blood was noted from the port that was accessed. The port as placed int he pocket and sutured in place. Placement was confirmed again under fluoroscopy guidance. Port was accessed with good backflow of blood and flushed with heparin. Upright chest film was performed in the operating room and no pneumothorax was noted. The port insicion was closed with 3-0 Vicryl followed by 4-0 Monocryl and skin affix. The right breast fungating mass was dressed. The patient was awakened from anesthesia and transported to PACU in good condition.
[2017-08-01] MEDS ORDERED: PERCOCET 5/325 PO PRN (10:00)
--- NOTE | 2017-08-01 10:01 | Post Anesthesia Evaluation ---
- Post Anesthesia Evaluation Patient Participated: Yes Airway Patent: Yes Stable Respiratory Function: Yes Nausea/Vomiting: No Temp > 96.8F: Yes Pain Manageable: Yes Adequeate Hydration: Yes Anesthesia Complications: No Block Receding Appropriately: Not Applicable Patient on Ventilator: No
[2017-08-01 11:12] VITALS: BP 108/70
--- NOTE | 2017-08-01 11:13 | Fluoroscopy Report ---
Single view chest: Next History: Breast cancer/insertion of Saadai-e-Ntst. Findings: Cardiomegaly. Trachea is midline. No consolidation, pneumothorax or pleural effusion. Tip of left [id number] is in the right atrium. Impression: Stable left Kgezwy-u-Meac.
== END 2017-08-01 11:10 | disposition home or self-care (01) ==
LOC: OR 06:08
PROVIDERS: ATTEND Surgery
DX: C50.411 Malignant neoplasm of upper-outer quadrant of right female breast (principal); C50.511 Malignant neoplasm of lower-outer quadrant of right female breast; C50.011 Malignant neoplasm of nipple and areola, right female breast; D64.9 Anemia, unspecified; Z98.890 Other specified postprocedural states
CPT/HCPCS: 36415; 36561; 77001; 81025; 85014; 85018; C1788; J0690; J1100; J1170; J1644; J2250; J2405; J2704; J7030

== ENCOUNTER 2017-12-18 10:14 | Outpatient (CLI) | payer MEDICAID ==
--- NOTE | 2017-12-18 12:59 | Mammography Report ---
RIGHT DIGITAL DIAGNOSTIC MAMMOGRAM with CAD and RIGHT BREAST ULTRASOUND: 12/18/17 10:14:00 CLINICAL: Right breast cancer status post chemotherapy. There is no mass measured 10 cm by MRI. COMPARISON:07/13/17 FINDINGS: And upper outer irregular retroareolar mass is significantly decreased in size and measures approximately 3.8 x 3.4 x 4.0 cm. Malignant calcifications are identified within the mass. Moderate skin thickening of the inner breast is significantly reduced compared to the prior exam. Ultrasound of the right breast demonstrated an irregular solid hypoechoic retroareolar mass at 12 o'clock measuring 2.7 x 2.4 x 2.4 cm. It correlates with the mammographic mass. IMPRESSION: Partial response to chemotherapy. BI-RADS CATEGORY: 6--Known Cancer ACR BI-RADS MAMMOGRAPHIC CODES: 0 = Needs additional imaging evaluation; 1 = Negative; 2 = Benign; 3 = Probably benign; 4 = Suspicious; 5 = Malignant; 6 = Known biopsy-proven malignancy COMMENT: 1. Dense breast tissue, i.e., adenosis, fibrocystic changes, etc., may obscure an underlying neoplasm. 2. Approximately 10% of cancers are not detected with mammography. 3. A negative mammography report should not delay biopsy if a clinically suspicious mass is present. COMMENT: Patient follow-up letters are generated by our [employer] application.
== END 2017-12-18 10:15 | disposition home or self-care (01) ==
LOC: SPVWC 10:14
PROVIDERS: ATTEND Surgery
DX: C50.911 Malignant neoplasm of unspecified site of right female breast (principal); R92.8 Other abnormal and inconclusive findings on diagnostic imaging of breast

== ENCOUNTER 2018-02-13 11:05 | Inpatient (IN) | payer MEDICAID ==
--- NOTE | 2018-02-13 13:29 | History and Physical Report ---
History of Present Illness Date of examination: 02/13/18 Date of admission: 02/13/18 11:30 Chief complaint: postop complication History of present illness: 3 weeks s/p right TRAM reconstruction and left tissue paint striping machine operator reconstruction. Now with likely paint striping machine operator infection as well as abdominal wound healing issues. Past History Past Medical History: cancer Past Surgical History: Other (see HPI) Social history: no significant social history Family history: no significant family history Medications and Allergies Allergies Allergy/AdvReac Type Severity Reaction Status Date / Time No Known Allergies Allergy Verified 01/11/18 15:32 Home Medications Medication Instructions Recorded Confirmed Last Taken Type Acetaminophen [Acetaminophen TAB] 650 mg PO Q6H PRN tablet 01/24/18 Unknown Rx Docusate Sodium [Colace CAP] 100 mg PO BID capsule 01/24/18 Unknown Rx Gabapentin [Neurontin] 300 mg PO Q8HR capsule 01/24/18 Unknown Rx oxyCODONE /ACETAMINOPHEN [Percocet 1 tab PO Q6H PRN tablet 01/24/18 Unknown Rx 5/325 mg] Review of Systems All systems: negative (recent fever, left breast pain and drainage, abdominal drainage) Exam Vital Signs Temp Pulse Resp BP Pulse Ox 97.8 F 65 20 107/74 100 02/13/18 12:58 02/13/18 12:58 02/13/18 12:58 02/13/18 12:58 02/13/18 12:58 Narrative exam: GEN: NAD CV: RRR Pulm: unlabored Abdomen: open wound left central lower incision, granulation tissue present. No pus or drainage. Small opening in central incision. Right drain site with open wound. BREAST: Right TRAM well perfused and no issues. Left tissue paint striping machine operator in place, copious semi purulent drainage from the left breast drain site. Assessment and Plan 3 weeks s/p RIGHT TRAM FLAP RECONSTRUCTION and LEFT TISSUE FARM IMPLEMENT MECHANIC RECONSTRUCTION, now with infection and wound healing complications Admit to hospital for IV antibiotics Need to take to OR urgently for removal of paint striping machine operator, washout, debridement of abdominal incision and placement of wound vac.
[2018-02-13] MEDS ORDERED: SODIUM CHLORIDE FLUSH SYRINGE 10 ML IV PRN (13:30)
[2018-02-13] MEDS ORDERED: ZOFRAN IV PRN (13:30)
[2018-02-13] MEDS ORDERED: DILAUDID IV PRN (13:36)
[2018-02-13] MEDS ORDERED: VANCOMYCIN 1,500 MG in NACL 0.9% 500 ML 500 ML IV ONE (14:00)
[2018-02-13] MEDS ORDERED: ZOSYN/NS 4.5GM/100ML 4.5 GM/100 ML VIAL IV SCH (14:00)
[2018-02-13] MEDS ORDERED: VANCOMYCIN PHARMACY TO DOSE IV SCH (14:00)
[2018-02-13] MEDS ORDERED: VANCOMYCIN/NS 1 GM/250 ML 1 GM/250 ML BAG IV SCH (14:00)
[2018-02-13 15:12] LABS: Hematocrit 28.4 % (30.3-42.9); Hemoglobin 9.2 gm/dl (10.1-14.3); Mean Corpuscular HGB Conc 32 % (30-34); Mean Corpuscular Hemoglobin 29 pg (28-32); Mean Corpuscular Volume 91 fl (79-97); Platelet Count 363 K/mm3 (140-440); Red Blood Count 3.13 M/mm3 (3.65-5.03); Red Cell Distribution Width 15.4 % (13.2-15.2)
[2018-02-13 15:24] LABS: BUN/Creatinine Ratio 11; Blood Urea Nitrogen 8 mg/dL (7-17); Calcium 10.2 mg/dL (8.4-10.2); Hemolysis Index 1
[2018-02-13] MEDS ORDERED: ZOSYN/NS 4.5GM/100ML 4.5 GM/100 ML VIAL IV ONE (16:00)
[2018-02-13 16:11] LABS: Basophils % (Manual) 0 % (0.0-1.8); Total Cells Counted 100
[2018-02-13 16:12] LABS: Anisocytosis 1+; Poikilocytosis Few
--- NOTE | 2018-02-13 17:29 | Anesthesia Consultation ---
Anesthesia Consult and Med Hx Date of service: 02/13/18 - Airway Anesthetic Teeth Evaluation: Good ROM Head & Neck: Adequate Mental/Hyoid Distance: Adequate Mallampati Class: Class II Intubation Access Assessment: Probably Good - Pre-Operative Health Status ASA Pre-Surgery Classification: ASA2 Proposed Anesthetic Plan: General - Pulmonary Hx Asthma: No COPD: No Hx Pneumonia: No - Central Nervous System Hx Psychiatric Problems: No - Endocrine Hx End Stage Renal Disease: No - Hematic Hx Anemia: Yes Hx Sickle Cell Disease: No - Other Systems Hx Alcohol Use: No Hx Substance Use: No Hx Cancer: Yes (breast CA) - Additional Comments Anesthesia Medical History Comments: s/p TRAM 01/20, infected breast nonprofit director
--- NOTE | 2018-02-13 17:33 | Anesthesia Day of Surgery ---
Anesthesia Day of Surgery - Day of Surgery Patient Examined: Yes Patient H&P Reviewed: Yes Patient is NPO: Yes
[2018-02-13] MEDS ORDERED: DIPRIVAN 10 MG/ML IV ONE (17:39)
[2018-02-13] MEDS ORDERED: ZOFRAN ONE (17:39)
[2018-02-13] MEDS ORDERED: XYLOCAINE MPF 2% ONE (17:39)
[2018-02-13] MEDS ORDERED: DECADRON ONE (17:39)
[2018-02-13] MEDS ORDERED: SUBLIMAZE ONE (17:41)
[2018-02-13] MEDS ORDERED: NACL 0.9% IR ONE (18:09)
[2018-02-13] MEDS ORDERED: BACITRACIN IR ONE (18:09)
[2018-02-13] MEDS ORDERED: GARAMYCIN IV ONE (18:09)
[2018-02-13] MEDS ORDERED: ANCEF IR ONE (18:09)
[2018-02-13] MEDS ORDERED: NACL 0.9% 1000 ML 1,000 ML ONE (18:12)
[2018-02-13] MEDS ORDERED: BACITRACIN ONE (18:26)
[2018-02-13] MEDS ORDERED: ANCEF/STERILE WATER 2 GM/20 ML 2 GM/20 ML SYRINGE IV ONE (18:26)
[2018-02-13] MEDS ORDERED: GARAMYCIN ONE (18:26)
--- NOTE | 2018-02-13 19:32 | Post Operative Note ---
Pre-op diagnosis: infection left tissue head of maintenance, abdominal wound dehiscence Post-op diagnosis: same Findings: infected left breast tissue head of maintenance, dehiscence of abdominal wound Procedure: removal left breast tissue head of maintenance, washout, debridement abdominal wound, wound vac placement Anesthesia: GETA Surgeon: LASHELL BREWER Estimated blood loss: minimal Pathology: list (tissue head of maintenance and cultures) Specimen disposition: to lab Condition: stable Disposition: PACU
[2018-02-13] MEDS ORDERED: PERCOCET 5/325 PO PRN (20:53)
[2018-02-13] MEDS: NEURONTIN PO SCH (22:40)
[2018-02-13] MEDS: COLACE PO SCH (22:40)
[2018-02-13] MEDS: ZOSYN/NS 4.5GM/100ML 4.5 GM/100 ML VIAL IV SCH (22:41)
[2018-02-13] MEDS: SODIUM CHLORIDE FLUSH SYRINGE 10 ML IV SCH (22:42)
--- NOTE | 2018-02-14 | Operative Report ---
PREOPERATIVE DIAGNOSES: Left-sided breast tissue house parent infection and abdominal wound dehiscence. POSTOPERATIVE DIAGNOSES: Left-sided breast tissue house parent infection and abdominal wound dehiscence. PROCEDURES: 1. Incision and drainage complex postoperative wound infection, left breast, CPT CODE 90132. 2. Debridement down to and including subcutaneous tissue of less than 20 square cm of tissue of the abdominal wound, CPT CODE 07315. 3. Application of negative pressure wound VAC device to abdominal wound for postoperative healing less than 50 square cm, CPT CODE 06749. SURGEON: Viktor Mendoza M.D. SANITATION SUPERINTENDENT: None. ANESTHESIA: General. OPERATIVE INDICATIONS: This is a 52-year-old female with an aggressive cancer, who had undergone neoadjuvant chemotherapy, who 3 weeks ago underwent bilateral mastectomies with reconstruction. She had a right-sided TRAM reconstruction that was pedicled and left-sided tissue house parent reconstruction. She has been doing well postop week 1 and then in postop week 2, she had a fever, which she did not notify any of her physicians about, which then kind of resolved. Her abdominal wound started to open up slightly. When I saw her in the office this morning, her abdominal wound had partially dehisced. She had fluid draining out of that and she had copious amounts of fluid draining out of her previous drain site in her left breast. I was concerned about infection of the house parent and also possible infection of the abdominal wall and mesh and decided to urgently take her to the hospital and started on IV antibiotics, take her to the operating room to address the issue. Risks and benefits of surgery were discussed with the patient and she agreed. OPERATIVE DETAILS: After informed consent was obtained, the patient was brought to the operating room and placed supine on the operating table. Preoperative antibiotics and general anesthesia were administered. The patient was prepped and draped in usual sterile fashion. A timeout was called verifying the inpatient operation being performed. We began with the abdominal incision. There was a dehisced area roughly 5 or 6 cm in length just lateral to the midline. There was another small area directly in the midline that was open. I decided to connect those 2 as there was a small 1 cm skin bridge connecting them. I opened that fully and allowed any fluid to drain out. Using finger dissection we then debrided all necrotic tissue of the wound of skin and subcutaneous tissue using a scalpel and scissors. All devitalized tissue was removed. The wound was then copiously irrigated with a liter of triple antibiotic irrigation. The wound was looking much more healthy and hemostasis was achieved. There was no tunneling or tracking. The mesh that was used for the abdominal closure was not visible. All appeared to be localized right to the incision. We then placed a black sponge into the wound and applied a wound VAC with adequate suction. Of note, we had also taken wound cultures of the abdominal wound and send that off. I then turned my attention to the breast. The previous incision was opened and a copious amount of semi-purulent fluid came rushing out. This was suctioned. We took cultures of that as well. There was an obvious infection going on, so the tissue house parent was completely removed and sent to pathology. The acellular dermal matrix that had been placed was partially incorporating but the majority of it was nonviable, so about 95% of the mesh was debrided and removed. We then cleaned up the rest of the pocket, irrigated with another 2 liters of triple antibiotic irrigation and achieved hemostasis. I placed a 15-Bahamian round Nasir drain into the pocket and then closed with 2-0 Vicryl interrupted deep dermals and a running 3-0 Monocryl subcuticular. We then placed Xeroform and sterile dressing. Sponge and instrument counts were correct and the patient tolerated the procedure well and was transferred to PACU in stable condition. ESTIMATED BLOOD LOSS: Less than 50 mL. COMPLICATIONS: None. FINDINGS: Infected left breast tissue house parent and dehiscence of abdominal wound. JOB# [id number] Love/SHIV
[2018-02-14] MEDS: VANCOMYCIN 1,250 MG in NACL 0.9% 250ML 250 ML IV SCH ×2 (01:57→17:44)
[2018-02-14] MEDS: ZOSYN/NS 4.5GM/100ML 4.5 GM/100 ML VIAL IV SCH (06:00)
[2018-02-14] MEDS: NEURONTIN PO SCH ×3 (06:01→23:19)
[2018-02-14] MEDS: NACL 0.9% 1000 ML 1,000 ML IV SCH (06:02)
--- NOTE | 2018-02-14 07:29 | Consultation ---
History of Present Illness - Reason for Consult Consult date: 02/14/18 Breast infection Requesting physician: LASHELL BREWER - History of Present Illness HPI: 52 yo F PMH Left breast cancer, s/p chemotherapy and s/p bilateral mastectomies, Right TRAM reconstruction and Left tissue renal case manager reconstruction on 01/21/18 who was admitted to [facility] 02/13/18 due to infected left breast tissue renal case manager and dehiscence of abdominal wound. Pt had been having Left breast pain and drainage from prior drain site, abdominal wound drainage and episode of fever of 103. She denies N/V/D, cough, SOB, CP, TADEO, dizziness, dysuria, abdominal pain. She was seen by the surgeon on 02/13 and due to concern about infection she was urgently admitted to the hospital on 02/13/18. On admission her temperature was 97.8, pulse 66, respiratory rate 20, saturation is 100%, blood pressure 107/74. WBC was 5.7, H&H 9.20/28.4, platelets 363. BUN and creatinine were 8 and 0.7. She underwent removal left breast tissue renal case manager, washout, debridement abdominal wound, wound vac placement on 02/13/18. Surgical cultures are pending. She is Zosyn and vancomycin. Infectious diseases service is consulted for further antibiotic management. Microbiology: Left breast tissue culture 02/13/18 pending Current Antimicrobials: Zosyn 02/13- Vancomycin 02/13- Past History Past Medical History: cancer Past Surgical History: Other (see HPI) Social history: no significant social history Family history: no significant family history Medications and Allergies Allergies Allergy/AdvReac Type Severity Reaction Status Date / Time No Known Allergies Allergy Verified 01/11/18 15:32 Home Medications Medication Instructions Recorded Confirmed Last Taken Type Acetaminophen [Acetaminophen TAB] 650 mg PO Q6H PRN tablet 01/24/18 Unknown Rx Docusate Sodium [Colace CAP] 100 mg PO BID capsule 01/24/18 Unknown Rx Gabapentin [Neurontin] 300 mg PO Q8HR capsule 01/24/18 Unknown Rx oxyCODONE /ACETAMINOPHEN [Percocet 1 tab PO Q6H PRN tablet 01/24/18 Unknown Rx 5/325 mg] Active Meds: Active Medications Docusate Sodium (Colace) 100 mg PO BID SERGIO Last Admin: 02/13/18 22:40 Dose: 100 mg Enoxaparin Sodium (Lovenox) 40 mg SUB-Q QDAY [facility] Gabapentin (Neurontin) 300 mg PO Q8HR [facility] Last Admin: 02/14/18 06:01 Dose: 300 mg Hydromorphone HCl (Dilaudid) 0.5 mg IV Q3H PRN PRN Reason: Pain , Severe (7-10) Sodium Chloride (Nacl 0.9% 1000 Ml) 1,000 mls @ 100 mls/hr IV DIRECT [facility] Last Admin: 02/14/18 06:02 Dose: 100 mls/hr Piperacillin Sod/Tazobactam Sod (Zosyn/Ns 4.5gm/100ml) 4.5 gm in 100 mls @ 200 mls/hr IV Q8HR [facility] Last Admin: 02/14/18 06:00 Dose: 200 mls/hr Vancomycin HCl 1,250 mg/ (Sodium Chloride) 262.5 mls @ 166.667 mls/hr IV Q12H [facility] Last Admin: 02/14/18 01:57 Dose: 166.667 mls/hr Ondansetron HCl (Zofran) 4 mg IV Q8H PRN PRN Reason: Nausea And Vomiting Oxycodone/Acetaminophen (Percocet 5/325) 1 tab PO Q6H PRN PRN Reason: Pain, Moderate (4-6) Last Admin: 02/13/18 22:40 Dose: 1 tab Sodium Chloride (Sodium Chloride Flush Syringe 10 Ml) 10 ml IV BID [facility] Last Admin: 02/13/18 22:42 Dose: 10 ml Sodium Chloride (Sodium Chloride Flush Syringe 10 Ml) 10 ml IV PRN PRN PRN Reason: LINE FLUSH Review of Systems Constitutional: other (as per HPI) Physical Examination - Physical Exam Narrative exam: General appearance: Alert in NAD, conversant Eyes: anicteric sclerae, moist conjunctivae; PERRLA, EOMI. HENT: Atraumatic; oropharynx clear with moist mucous membranes and no mucosal ulcerations/no oral thrush; normal hard and soft palate. Normal external ears. Neck: Trachea midline; supple, no thyromegaly or lymphadenopathy Lungs: CTA, with normal respiratory effort and no intercostal retractions CV: S1,S2. RRR. Breasts: R breast surgical wound, clean, no erythema or drainage. R breast with dressing and RAI drain in place with serosanguineous drainage. Abdomen: +BS. Soft, non-tender. Lower abdominal wound with wound vac in place. RLQ open wound with some slough, no surrounding erythema. Extremities: No peripheral edema or extremity lymphadenopathy Skin: No rash. Psych: Appropriate affect, alert and oriented to person, place and time. Neuro: alert and oriented x 3. Moving all extremities Lines: No CVL / PICC - Constitutional Vitals: Vital Signs Temp Pulse Resp BP Pulse Ox 97.5 F L 68 18 102/66 97 02/13/18 23:23 02/13/18 23:23 02/13/18 23:23 02/13/18 23:23 02/13/18 23:23 Temperature -Last 24 Hours Temperature 97.5 F Temperature 97.8 F Temperature 98.1 F Temperature 97.8 F Results - Labs CBC & Chem 7: 02/14/18 06:41 02/14/18 06:41 Labs: Abnormal lab results 02/13/18 Range/Units 14:38 RBC 3.13 L (3.65-5.03) M/mm3 Hgb 9.2 L (10.1-14.3) gm/dl Hct 28.4 L (30.3-42.9) % RDW 15.4 H (13.2-15.2) % Lymphocytes % (Manual) 37.0 H (13.4-35.0) % Monocytes % (Manual) 9.0 H (0.0-7.3) % Eosinophils % (Manual) 8.0 H (0.0-4.3) % Eosinophils # (Manual) 0.5 H (0.0-0.4) K/mm3 Assessment and Plan Assessment: 1) Infected left breast tissue renal case manager and dehiscence of abdominal wound. -s/p removal left breast tissue renal case manager, washout, debridement of abdominal wound, wound vac placement on 02/13/18. 2) Breast cancer, s/p Bilateral mastectomies with reconstruction on 01/21/18. Recommendations: -follow-up surgical cultures. -Continue vancomycin -Change to cefepime -Monitor CBC, CMP. -Antibiotic regimen for discharge will depend on culture results. -Further recommendations as case progresses. Thank you for your consultation, will follow up with you. Ashwini Tiwari MD Infectious Diseases Specialist [facility] ([facility]) [phone]
[2018-02-14 07:46] LABS: Basophils % (Auto) 0.2 % (0.0-1.8); Hematocrit 28.2 % (30.3-42.9); Hemoglobin 9.4 gm/dl (10.1-14.3); Lymphocytes # (Auto) 1.4 K/mm3 (1.2-5.4); Lymphocytes % (Auto) 23.8 % (13.4-35.0); Mean Corpuscular HGB Conc 33 % (30-34); Mean Corpuscular Hemoglobin 30 pg (28-32); Mean Corpuscular Volume 90 fl (79-97); Monocytes # (Auto) 0.2 K/mm3 (0.0-0.8); Monocytes % (Auto) 2.9 % (0.0-7.3); Platelet Count 395 K/mm3 (140-440); Red Blood Count 3.15 M/mm3 (3.65-5.03); Red Cell Distribution Width 15.8 % (13.2-15.2)
[2018-02-14 08:00] LABS: BUN/Creatinine Ratio 16; Blood Urea Nitrogen 14 mg/dL (7-17); Calcium 10.6 mg/dL (8.4-10.2); Hemolysis Index 2
[2018-02-14] MEDS: MAXIPIME 2 GM in NACL 0.9% 20 ML IV SCH ×5 (08:30→23:48)
--- NOTE | 2018-02-14 09:45 | Progress Note ---
Assessment and Plan 3 weeks s/p RIGHT TRAM FLAP RECONSTRUCTION and LEFT TISSUE LOAN EXPEDITOR RECONSTRUCTION, now with infection and wound healing complications. POD 1 s/p removal of infected velvet cutter, debridement abdominal wound and placement of wound vac dressing. -Advance diet -Follow up cultures -Appreciate ID input: switching from zosyn to cefepime. -Case management consult: need to try and setup home wound vac therapy, possible DC tomorrow Subjective Date of service: 02/14/18 Principal diagnosis: left breast tissue velvet cutter infection Interval history: Did well overnight, pain is well controlled. No major issues Objective - Exam Narrative Exam: BREAST: Dressing in place, no drainage. Drain is serosang. No hematoma. ABD: wound vac in place, scant drainage, good seal. - Constitutional Vitals: Vital Signs - 12hr 02/13/18 02/13/18 02/13/18 22:00 22:40 23:23 Temperature 97.5 F L Pulse Rate 68 Respiratory 20 20 18 Rate Blood Pressure 102/66 O2 Sat by Pulse 97 Oximetry 02/14/18 07:46 Temperature 98.2 F Pulse Rate 58 L Respiratory 18 Rate Blood Pressure 101/64 O2 Sat by Pulse 95 Oximetry - Labs CBC & Chem 7: 02/14/18 06:41 02/14/18 06:41 Labs: Abnormal lab results 02/13/18 02/14/18 02/14/18 Range/Units 14:38 06:41 06:41 RBC 3.13 L 3.15 L (3.65-5.03) M/mm3 Hgb 9.2 L 9.4 L (10.1-14.3) gm/dl Hct 28.4 L 28.2 L (30.3-42.9) % RDW 15.4 H 15.8 H (13.2-15.2) % Seg Neutrophils % 73.1 H (40.0-70.0) % Lymphocytes % (Manual) 37.0 H (13.4-35.0) % Monocytes % (Manual) 9.0 H (0.0-7.3) % Eosinophils % (Manual) 8.0 H (0.0-4.3) % Eosinophils # (Manual) 0.5 H (0.0-0.4) K/mm3 Glucose 134 H (65-100) mg/dL Calcium 10.6 H (8.4-10.2) mg/dL
[2018-02-14] MEDS: COLACE PO SCH ×2 (10:33→23:19)
[2018-02-14] MEDS: LOVENOX SUB-Q SCH (10:33)
[2018-02-14] MEDS: SODIUM CHLORIDE FLUSH SYRINGE 10 ML IV SCH ×2 (10:37→23:20)
[2018-02-14] MEDS ORDERED: VANCOMYCIN PHARMACY TO DOSE IV SCH (11:00)
[2018-02-14] MEDS: VANCOMYCIN/0.45 NS 1 GM/250 ML 1 GM/250 ML BAG IV SCH (17:45)
[2018-02-15] MEDS: VANCOMYCIN/0.45 NS 1 GM/250 ML 1 GM/250 ML BAG IV SCH ×2 (06:55→17:09)
[2018-02-15] MEDS: MAXIPIME 2 GM in NACL 0.9% 20 ML IV SCH ×2 (06:55→22:03)
[2018-02-15] MEDS: NEURONTIN PO SCH ×3 (07:04→22:03)
--- NOTE | 2018-02-15 07:58 | Progress Note ---
Assessment and Plan 3 weeks s/p RIGHT TRAM FLAP RECONSTRUCTION and LEFT TISSUE AQUATIC BIOLOGIST RECONSTRUCTION, now with infection and wound healing complications. POD 2 s/p removal of infected pulper tender, debridement abdominal wound and placement of wound vac dressing. -Follow up cultures: no growth yet -Appreciate ID input: switching from zosyn to cefepime. Please advise on oral regimen, would like to send patient home today. -Case management consult: need to try and setup home wound vac therapy, would like to discharge today on wound vac if possible. If issues with insurance etc , then we can send home on wet to dry dressing changes to the abdomen. Subjective Date of service: 02/15/18 Patient Reports: Positive: no new complaints Objective Vital Signs - 12hr 02/14/18 02/14/18 22:00 23:43 Temperature 97.7 F Pulse Rate 60 Respiratory 20 18 Rate Blood Pressure 104/61 O2 Sat by Pulse 99 Oximetry - General physical appearance Narrative Exam: BREAST: Dressing in place, no drainage. Drain is serosang. No hematoma. ABD: wound vac in place, scant drainage, good seal. - Labs 02/14/18 06:41 02/14/18 06:41 Diabetes panel 02/14/18 Range/Units 06:41 Sodium 140 (137-145) mmol/L Potassium 4.6 (3.6-5.0) mmol/L Chloride 100.9 (98-107) mmol/L Carbon Dioxide 23 (22-30) mmol/L BUN 14 (7-17) mg/dL Creatinine 0.9 (0.7-1.2) mg/dL Glucose 134 H (65-100) mg/dL Calcium 10.6 H (8.4-10.2) mg/dL Calcium panel 02/14/18 Range/Units 06:41 Calcium 10.6 H (8.4-10.2) mg/dL Pituitary panel 02/14/18 Range/Units 06:41 Sodium 140 (137-145) mmol/L Potassium 4.6 (3.6-5.0) mmol/L Chloride 100.9 (98-107) mmol/L Carbon Dioxide 23 (22-30) mmol/L BUN 14 (7-17) mg/dL Creatinine 0.9 (0.7-1.2) mg/dL Glucose 134 H (65-100) mg/dL Calcium 10.6 H (8.4-10.2) mg/dL Adrenal panel 02/14/18 Range/Units 06:41 Sodium 140 (137-145) mmol/L Potassium 4.6 (3.6-5.0) mmol/L Chloride 100.9 (98-107) mmol/L Carbon Dioxide 23 (22-30) mmol/L BUN 14 (7-17) mg/dL Creatinine 0.9 (0.7-1.2) mg/dL Glucose 134 H (65-100) mg/dL Calcium 10.6 H (8.4-10.2) mg/dL
--- NOTE | 2018-02-15 09:45 | Progress Note ---
Assessment and Plan Assessment: 1) Infected left breast tissue rock room worker and dehiscence of abdominal wound. -s/p removal left breast tissue rock room worker, washout, debridement of abdominal wound, wound vac placement on 02/13/18. 2) Breast cancer, s/p Bilateral mastectomies with reconstruction on 01/21/18. Recommendations: -follow-up surgical cultures. -Continue vancomycin (D3), Cefepime (D2). -Monitor CBC, CMP. -Antibiotic regimen for discharge will depend on culture results. -Pt agreed to have port access for administration of IV antibiotics. -Will follow up with you. Ashwini Tiwari MD Infectious Diseases Specialist [facility] ([facility]) M [phone] Subjective Date of service: 02/15/18 Principal diagnosis: left breast tissue rock room worker infection Interval history: Afebrile. Lost IV access. Microbiology: Left breast tissue culture 02/13/18 pending Left breast anaerobic wound cx 02/13 NGTD Left breast aerobic wound cx 02/13 pending Abdominal anaerobic wound cx 02/13 NGTD Abdominal aerobic wound cx 02/13 pending Current Antimicrobials: Cefepime 02/14- Vancomycin 02/13- Prior antimicrobials Zosyn 02/13-02/14 Objective - Exam Narrative Exam: General appearance: Alert in NAD, conversant Eyes: anicteric sclerae, moist conjunctivae; PERRLA, EOMI. HENT: Atraumatic; oropharynx clear with moist mucous membranes and no mucosal ulcerations/no oral thrush; normal hard and soft palate. Normal external ears. Neck: Trachea midline; supple, no thyromegaly or lymphadenopathy Lungs: CTA, with normal respiratory effort and no intercostal retractions CV: S1,S2. RRR. Left port in place, site clean. Breasts: R breast surgical wound, clean, no erythema or drainage. R breast with dressing and RAI drain in place with serosanguineous drainage. Abdomen: +BS. Soft, non-tender. Lower abdominal wound with wound vac in place. RLQ open wound with some slough, no surrounding erythema. Extremities: No peripheral edema or extremity lymphadenopathy Skin: No rash. Psych: Appropriate affect, alert and oriented to person, place and time. Neuro: alert and oriented x 3. Moving all extremities Lines: No CVL / PICC - Constitutional Vitals: Vital Signs Temp Pulse Resp BP Pulse Ox 97.6 F 54 L 18 101/64 99 02/15/18 07:26 02/15/18 07:26 02/15/18 07:26 02/15/18 07:26 02/15/18 07:26 Temperature -Last 24 Hours Temperature 97.6 F Temperature 97.7 F Temperature 97.5 F Temperature 98.3 F - Labs CBC & Chem 7: 02/14/18 06:41 02/14/18 06:41
[2018-02-15] MEDS: COLACE PO SCH ×2 (10:36→22:03)
[2018-02-15] MEDS: LOVENOX SUB-Q SCH (10:36)
[2018-02-15] MEDS ORDERED: EMLA TP ONE (16:00)
[2018-02-15] MEDS: SODIUM CHLORIDE FLUSH SYRINGE 10 ML IV SCH ×2 (17:10→22:05)
[2018-02-15] MEDS: NACL 0.9% 1000 ML 1,000 ML IV SCH (22:03)
[2018-02-15 23:53] VITALS: BP 110/81
[2018-02-16] MEDS: NEURONTIN PO SCH ×2 (06:15→13:25)
[2018-02-16] MEDS: MAXIPIME 2 GM in NACL 0.9% 20 ML IV SCH ×3 (06:17→13:28)
[2018-02-16] MEDS: VANCOMYCIN/0.45 NS 1 GM/250 ML 1 GM/250 ML BAG IV SCH (06:18)
[2018-02-16 07:17] LABS: Calcium 9.9 mg/dL (8.4-10.2)
[2018-02-16] MEDS: SODIUM CHLORIDE FLUSH SYRINGE 10 ML IV SCH (09:03)
[2018-02-16] MEDS: LOVENOX SUB-Q SCH (09:03)
[2018-02-16] MEDS: COLACE PO SCH (09:03)
--- NOTE | 2018-02-16 13:55 | Discharge Summary ---
Providers - Providers Date of Admission: 02/13/18 11:30 Date of discharge: 02/16/18 Attending physician: LASHELL BREWER 02/13/18 13:30 Consult to Physician [CONS] Urgent Comment: setting of parts sales associate infection Consulting Provider: BAILEE MILLER Physician Instructions: please evaluate for antibiotic management Reason For Exam: parts sales associate infection 02/14/18 05:36 Consult to Case Management [CONS] Routine Services Needed at Discharge: Wound Vac Notified:: Case management Was contact made?: No 02/14/18 08:28 Consult to Wound/ET Nurse [CONS] Routine Reason For Exam: wound eval for wound vac Primary care physician: AMAIRANI FULLER Hospitalization Condition: Good Procedures: washout left breast, removal parts sales associate, washout abdominal wound and wound vac placement Hospital course: placed on IV antibiotics after surgery. Cultures growing Staph aureus. Patient placed on vanco and cefepime initially, and then dc with augmentin and doxycycline per ID recommendations. Will follow up with them on . Wound vac changed on sunday and will dc home with home health and wound vac changes every 2-3 days. She was afebrile, normal WBC and feeling well at discharge. Disposition: [id number] HOME UNDER HOME [facility] Core Measure Documentation - Palliative Care Palliative Care/ Comfort Measures: Not Applicable - Core Measures Any of the following diagnoses?: none Exam - Physical Exam Narrative exam: BREAST: Dressing in place, no drainage. Drain is serosang. No hematoma. ABD: wound vac in place, scant drainage, good seal. - Constitutional Vitals: Temp Pulse Resp BP Pulse Ox 98.4 F 87 18 110/81 99 02/15/18 23:24 02/15/18 23:24 02/15/18 23:24 02/15/18 23:24 02/15/18 23:24 General appearance: Present: no acute distress Plan Diet: regular Follow up with: AMAIRANI FULLER MD [Primary Care Provider] - 7 Days SHEBA SANDERS MD [Staff Physician] - 02/21/18 LASHELL BREWER MD [Staff Physician] - 02/27/18
[2018-02-16] MEDS ORDERED: TRIPLE ANTIBIOTIC TP ONE (15:00)
[2018-02-16] MEDS ORDERED: FLUSH HEPARIN IV ONE (15:00)
[2018-02-17] MEDS ORDERED: VANCOMYCIN 1,250 MG in NACL 0.9% 250ML 250 ML IV SCH (06:00)
== END 2018-02-16 16:50 | disposition home health service (06) | DRG 902 ==
LOC: 3A 11:05 → UNDOADMIN 11:05 → OB 11:30 → 3A 12:12
PROVIDERS: ADMIT Plastic Surgery; ATTEND Plastic Surgery
PROC: 0JB80ZZ Excision of Abdomen Subcutaneous Tissue and Fascia, Open Approach (ICD-10-PCS; principal; 2018-02-13)
PROC: 0H9U3ZZ Drainage of Left Breast, Percutaneous Approach (ICD-10-PCS; 2018-02-13)
PROC: 0HPU0NZ Removal of Tissue Expander from Left Breast, Open Approach (ICD-10-PCS; 2018-02-13)
DX: T81.31XA Disruption of external operation (surgical) wound, not elsewhere classified, initial encounter (principal); T86.822 Skin graft (allograft) (autograft) infection; Y83.2 Surgical operation with anastomosis, bypass or graft as the cause of abnormal reaction of the patient, or of later complication, without mention of misadventure at the time of the procedure; Z79.899 Other long term (current) drug therapy; Y92.89 Other specified places as the place of occurrence of the external cause
CPT/HCPCS: 36415; 80048; 84703; 85007; 85025; 87075; 87076; 87116; 87186; A4217; A6250; J0690; J0692; J1100; J1580; J1642; J1650; J2405; J2543; J2704; J3010; J3370; J7030; J7040; J7050

== ENCOUNTER 2018-02-18 13:03 | Outpatient (CLI) | payer MEDICAID | END 2018-02-18 13:04 | disposition home or self-care (01) | LOC: WOUND 13:03 | PROVIDERS: ATTEND Internal Medicine | DX: T81.89XD Other complications of procedures, not elsewhere classified, subsequent encounter (principal); Z85.3 Personal history of malignant neoplasm of breast; Y83.8 Other surgical procedures as the cause of abnormal reaction of the patient, or of later complication, without mention of misadventure at the time of the procedure | CPT/HCPCS: 97605; G0463 ==

== ENCOUNTER 2018-02-25 11:02 | Outpatient (CLI) | payer MEDICAID ==
[2018-02-25] MEDS ORDERED: XYLOCAINE TOPICAL 4% TP ONE (11:21)
== END 2018-02-25 11:03 | disposition home or self-care (01) ==
LOC: WOUND 11:02
PROVIDERS: ATTEND Internal Medicine
DX: T81.89XD Other complications of procedures, not elsewhere classified, subsequent encounter (principal); Z85.3 Personal history of malignant neoplasm of breast; Y83.8 Other surgical procedures as the cause of abnormal reaction of the patient, or of later complication, without mention of misadventure at the time of the procedure
CPT/HCPCS: 97605; G0463-25

== ENCOUNTER 2018-03-04 10:42 | Outpatient (CLI) | payer MEDICAID ==
[2018-03-04] MEDS ORDERED: SILVER NITRATE TP ONE ×2 (11:11→11:13)
[2018-03-04] MEDS ORDERED: XYLOCAINE TOPICAL 4% TP ONE ×2 (11:11→11:13)
== END 2018-03-04 10:43 | disposition home or self-care (01) ==
LOC: WOUND 10:42
PROVIDERS: ATTEND Internal Medicine
DX: T81.89XD Other complications of procedures, not elsewhere classified, subsequent encounter (principal); Z85.3 Personal history of malignant neoplasm of breast; Y83.8 Other surgical procedures as the cause of abnormal reaction of the patient, or of later complication, without mention of misadventure at the time of the procedure
CPT/HCPCS: 17250

== ENCOUNTER 2018-03-11 10:39 | Outpatient (CLI) | payer MEDICAID ==
[2018-03-11] MEDS ORDERED: XYLOCAINE TOPICAL 4% TP ONE ×2 (10:56→11:09)
== END 2018-03-11 10:40 | disposition home or self-care (01) ==
LOC: WOUND 10:39
PROVIDERS: ATTEND Surgery
DX: T81.89XD Other complications of procedures, not elsewhere classified, subsequent encounter (principal); Z85.3 Personal history of malignant neoplasm of breast; Y83.8 Other surgical procedures as the cause of abnormal reaction of the patient, or of later complication, without mention of misadventure at the time of the procedure

== ENCOUNTER 2018-03-18 10:49 | Outpatient (CLI) | payer MEDICAID ==
[2018-03-18] MEDS ORDERED: XYLOCAINE TOPICAL 4% TP ONE ×2 (11:06→11:08)
[2018-03-18] MEDS ORDERED: SILVER NITRATE TP ONE ×3 (11:20→11:24)
== END 2018-03-18 10:50 | disposition home or self-care (01) ==
LOC: WOUND 10:49
PROVIDERS: ATTEND Surgery
DX: T81.89XD Other complications of procedures, not elsewhere classified, subsequent encounter (principal); Z85.3 Personal history of malignant neoplasm of breast; Y83.8 Other surgical procedures as the cause of abnormal reaction of the patient, or of later complication, without mention of misadventure at the time of the procedure
CPT/HCPCS: 17250

== ENCOUNTER 2018-03-25 10:51 | Outpatient (CLI) | payer MEDICAID ==
[2018-03-25] MEDS ORDERED: XYLOCAINE TOPICAL 4% TP ONE (11:08)
== END 2018-03-25 10:52 | disposition home or self-care (01) ==
LOC: WOUND 10:51
PROVIDERS: ATTEND Obstetrics & Gynecology Gynecologic Oncology
DX: T81.89XD Other complications of procedures, not elsewhere classified, subsequent encounter (principal); Z85.3 Personal history of malignant neoplasm of breast; Y83.8 Other surgical procedures as the cause of abnormal reaction of the patient, or of later complication, without mention of misadventure at the time of the procedure

== ENCOUNTER 2018-04-08 10:34 | Outpatient (CLI) | payer MEDICAID | END 2018-04-08 10:35 | disposition home or self-care (01) | LOC: WOUND 10:34 | PROVIDERS: ATTEND Surgery | DX: T81.89XD Other complications of procedures, not elsewhere classified, subsequent encounter (principal); Z85.3 Personal history of malignant neoplasm of breast; Y83.8 Other surgical procedures as the cause of abnormal reaction of the patient, or of later complication, without mention of misadventure at the time of the procedure | CPT/HCPCS: 99213; G0463 ==

== ENCOUNTER 2018-04-15 13:19 | Emergency (ER) | payer MEDICAID, OTHER ==
[2018-04-15 14:36] VITALS: BP 118/89
[2018-04-15] MEDS ORDERED: AUGMENTIN 875 MG PO ONE (16:12)
[2018-04-15] MEDS ORDERED: TYLENOL PO ONE (16:12)
--- NOTE | 2018-04-15 16:13 | Emergency Department Report ---
ED ENT HPI - General Chief complaint: Sore Throat Stated complaint: SORE THRAOT Time Seen by Provider: 04/15/18 15:54 Source: patient Mode of arrival: Ambulatory Limitations: No Limitations - History of Present Illness Initial comments: 52-year-old female past medical history breast cancer on active chemotherapy and radiation therapy presents with complaint of 2-3 days of sore throat and right earache. Patient states that multiple family members have strep throat at home. Patient is speaking in full sentences no audible wheezing or stridor. No trismus noted drooling. States that her throat is aching her. Denies any other symptoms. Denies fevers or chills. [facility] and chemotherapy team. MD complaint: sore throat Onset/Timin -: days(s) Location: throat Severity: moderate Severity scale (0 -10): 6 Quality: aching Consistency: intermittent Worsens with: swallowing, eating Associated Symptoms: sore throat - Related Data Previous Rx's Medication Instructions Recorded Last Taken Type Acetaminophen [Acetaminophen TAB] 650 mg PO Q6H PRN tablet 01/24/18 Unknown Rx Docusate Sodium [Colace CAP] 100 mg PO BID capsule 01/24/18 Unknown Rx Gabapentin [Neurontin] 300 mg PO Q8HR capsule 01/24/18 Unknown Rx oxyCODONE /ACETAMINOPHEN [Percocet 1 tab PO Q6H PRN tablet 01/24/18 Unknown Rx 5/325 mg] Amoxicillin/Potassium Clav 1 each PO BID #14 tablet 04/15/18 Unknown Rx [Augmentin 875-125 Tablet] Dextromethorphan/Benzocaine 1 each PO Q4H PRN #1 box 04/15/18 Unknown Rx [Cepacol Sorethroat-Cough Mark] Ibuprofen [Motrin] 600 mg PO Q8H PRN #15 tablet 04/15/18 Unknown Rx Allergies Allergy/AdvReac Type Severity Reaction Status Date / Time No Known Allergies Allergy Verified 01/11/18 15:32 ED Dental HPI - General Chief complaint: Sore Throat Stated complaint: SORE THRAOT Time Seen by Provider: 04/15/18 15:54 Source: patient Mode of arrival: Ambulatory Limitations: No Limitations - Related Data Previous Rx's Medication Instructions Recorded Last Taken Type Acetaminophen [Acetaminophen TAB] 650 mg PO Q6H PRN tablet 01/24/18 Unknown Rx Docusate Sodium [Colace CAP] 100 mg PO BID capsule 01/24/18 Unknown Rx Gabapentin [Neurontin] 300 mg PO Q8HR capsule 01/24/18 Unknown Rx oxyCODONE /ACETAMINOPHEN [Percocet 1 tab PO Q6H PRN tablet 01/24/18 Unknown Rx 5/325 mg] Amoxicillin/Potassium Clav 1 each PO BID #14 tablet 04/15/18 Unknown Rx [Augmentin 875-125 Tablet] Dextromethorphan/Benzocaine 1 each PO Q4H PRN #1 box 04/15/18 Unknown Rx [Cepacol Sorethroat-Cough Mark] Ibuprofen [Motrin] 600 mg PO Q8H PRN #15 tablet 04/15/18 Unknown Rx Allergies Allergy/AdvReac Type Severity Reaction Status Date / Time No Known Allergies Allergy Verified 01/11/18 15:32 ED Review of Systems ROS: Stated complaint: SORE THRAOT Other details as noted in HPI Comment: patient currently on chemotherapy Constitutional: denies: chills, fever Eyes: denies: eye pain, eye discharge, vision change ENT: throat pain. denies: ear pain Respiratory: denies: cough, shortness of breath, wheezing Cardiovascular: denies: chest pain, palpitations Endocrine: no symptoms reported Gastrointestinal: denies: abdominal pain, nausea, diarrhea Genitourinary: denies: urgency, dysuria, discharge Musculoskeletal: denies: back pain, joint swelling, arthralgia Skin: denies: rash, lesions Neurological: denies: headache, weakness, paresthesias Psychiatric: denies: anxiety, depression Hematological/Lymphatic: denies: easy bleeding, easy bruising ED Past Medical Hx - Past Medical History Hx Congestive Heart Failure: No Hx Diabetes: No Hx of Cancer: Yes (breast) Hx Sickle Cell Disease: No Hx Asthma: No Hx COPD: No Hx HIV: No 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 mastectomy - Social History Smoking Status: Never Smoker Substance Use Type: None - Medications Home Medications: Home Medications Medication Instructions Recorded Confirmed Last Taken Type Acetaminophen [Acetaminophen TAB] 650 mg PO Q6H PRN tablet 01/24/18 Unknown Rx Docusate Sodium [Colace CAP] 100 mg PO BID capsule 01/24/18 Unknown Rx Gabapentin [Neurontin] 300 mg PO Q8HR capsule 01/24/18 Unknown Rx oxyCODONE /ACETAMINOPHEN [Percocet 1 tab PO Q6H PRN tablet 01/24/18 Unknown Rx 5/325 mg] Amoxicillin/Potassium Clav 1 each PO BID #14 tablet 04/15/18 Unknown Rx [Augmentin 875-125 Tablet] Dextromethorphan/Benzocaine 1 each PO Q4H PRN #1 box 04/15/18 Unknown Rx [Cepacol Sorethroat-Cough Mark] Ibuprofen [Motrin] 600 mg PO Q8H PRN #15 tablet 04/15/18 Unknown Rx ED Physical Exam - General Limitations: No Limitations General appearance: alert, in no apparent distress - Head Head exam: Present: atraumatic, normocephalic - Eye Eye exam: Present: normal appearance - ENT ENT exam: Present: mucous membranes moist - Expanded ENT Exam Expanded Throat exam: Positive: tonsillar exudate (tonsillar exudates on the right side, tonsillar erythema. Uvula is midline no peritonsillar abscess.) - Neck Neck exam: Present: normal inspection - Respiratory Respiratory exam: Present: normal lung sounds bilaterally. Absent: respiratory distress - Cardiovascular Cardiovascular Exam: Present: regular rate, normal rhythm. Absent: systolic murmur, diastolic murmur, rubs, gallop - GI/Abdominal GI/Abdominal exam: Present: soft, normal bowel sounds - Extremities Exam Extremities exam: Present: normal inspection - Back Exam Back exam: Present: normal inspection - Neurological Exam Neurological exam: Present: alert, oriented X3 - Psychiatric Psychiatric exam: Present: normal affect, normal mood - Skin Skin exam: Present: warm, dry, intact, normal color. Absent: rash ED Course Vital Signs 04/15/18 14:33 Temperature 98.6 F Pulse Rate 89 Respiratory 18 Rate Blood Pressure 118/89 O2 Sat by Pulse 100 Oximetry ED Medical Decision Making - Medical Decision Making A/P: Strep pharyngitis 1-she is currently on chemotherapy and has had positive contact with 2 people at home with strep we'll treat empirically 2-throat lozenges, Tylenol when necessary, course of Augmentin twice a day 7 days 3-she tolerating by mouth fluid without difficulty. No clinical signs of [employer] 4-I advised her to return to the ED if she has any difficulty swallowing liquids and solids difficulty speaking or shortness of breath. She stated she understood my instructions Critical care attestation.: If time is entered above; I have spent that time in minutes in the direct care of this critically ill patient, excluding procedure time. ED Disposition Clinical Impression: Strep throat Disposition: DC- TO HOME OR SELFCARE Is pt being admited?: No Does the pt Need Aspirin: No Condition: Stable Instructions: Strep Throat (ED), Pharyngitis (ED) Prescriptions: Amoxicillin/Potassium Clav [Augmentin 875-125 Tablet] 1 each PO BID #14 tablet Dextromethorphan/Benzocaine [Cepacol Sorethroat-Cough Mark] 1 each PO Q4H PRN #1 box PRN Reason: Sore Throat Ibuprofen [Motrin] 600 mg PO Q8H PRN #15 tablet PRN Reason: Pain Referrals: [facility] [Provider Group] - 3-5 Days Time of Disposition: 16:38
== END 2018-04-15 16:56 | disposition home or self-care (01) ==
LOC: ED 13:19
DX: J02.0 Streptococcal pharyngitis (principal); Z85.3 Personal history of malignant neoplasm of breast; Z98.51 Tubal ligation status
CPT/HCPCS: 87430; 99282